=== PATIENT | female | born 1995 | race Two or more races ===

== ENCOUNTER 2018-08-09 13:22 | Emergency (ER) | payer SELFPAY ==
[~2018-08-09] VITALS: Ht 152.4 cm; Wt 109.1 kg
[2018-08-09] MEDS ORDERED: IBUPROFEN 800 MG TABLET PO ONE (15:15)
[2018-08-09] MEDS ORDERED: ACETAMINOPHEN 325 MG TABLET PO ONE (15:15)
[2018-08-09 17:21] LABS: RAPID GROUP A STREP NEGATIVE (NEGATIVE)
[2018-08-09 17:34] LABS: INFLUENZA TYPE A NEGATIVE FOR TYPE A (NEGATIVE); INFLUENZA TYPE B NEGATIVE FOR TYPE B (NEGATIVE)
[2018-08-09 17:55] VITALS: BP 118/60
== END 2018-08-09 18:30 | disposition home or self-care (01) ==
LOC: EMS 13:22
DX: J02.9 Acute pharyngitis, unspecified (principal); M79.10 Myalgia, unspecified site
CPT/HCPCS: 87430; 87804

== ENCOUNTER 2022-01-01 12:37 | Day surgery (SDC) | payer OTHER ==
[~2022-01-01] VITALS: Ht 152.4 cm; Wt 136.1 kg
[~2022-01-01 12:37] MED LIST: ALBU8HFA IH; BENZ-70 PO; OMEP20 PO; ONDA-104 PO; SODIUM CHLORIDE 0.9% 1,000 ML IV ONE; SODIUM CHLORIDE 0.9% 1,000 ML ONE
[2022-01-01] MEDS ORDERED: LIDOCAINE/PF 2% 5 ML VIAL IM ONE (12:38)
[2022-01-01] MEDS ORDERED: PROPOFOL 1% 20 ML VIAL IVP ONE (12:38)
[2022-01-01 13:03] LABS: COVID AG,FIA SOURCE NASAL SWAB
[2022-01-02] MEDS ORDERED: CEPH-558 PO (16:09)
== END 2022-01-01 15:10 | disposition home or self-care (01) ==
LOC: SURGERY 12:37
PROVIDERS: ATTEND Internal Medicine Gastroenterology
DX: K21.00 Gastro-esophageal reflux disease with esophagitis, without bleeding (principal); K29.50 Unspecified chronic gastritis without bleeding; J45.909 Unspecified asthma, uncomplicated; Z90.49 Acquired absence of other specified parts of digestive tract; Z98.890 Other specified postprocedural states; E66.01 Morbid (severe) obesity due to excess calories; Z79.899 Other long term (current) drug therapy
CPT/HCPCS: 43239; 87426; C9803; C1769; J2704; J3490; J7030

== ENCOUNTER 2022-01-02 11:33 | Emergency (ER) | payer OTHER ==
[~2022-01-02] VITALS: Ht 152.4 cm; Wt 136.4 kg
[~2022-01-02 11:33] MED LIST changes: -SODIUM CHLORIDE 0.9% 1,000 ML IV ONE; -SODIUM CHLORIDE 0.9% 1,000 ML ONE
[2022-01-02 12:42] LABS: EOSINOPHILS % (AUTO) 1.6 % (1.0-6.0); HEMATOCRIT 43.6 % (36-46); HEMOGLOBIN 14.6 g/dL (12.0-16.0); LYMPHOCYTES # (AUTO) 2.2 K/uL (1.0-4.8); LYMPHOCYTES % (AUTO) 31.9 % (22.0-44.0); MEAN CORPUSCULAR HEMOGLOBIN 30.8 pg (26.0-34.0); MEAN CORPUSCULAR HGB CONC 33.4 G/dL (31.0-37.0); MEAN CORPUSCULAR VOLUME 92 fL (80-100); MONOCYTES # (AUTO) 0.5 K/uL (0.1-1.0); MONOCYTES % (AUTO) 7.5 % (2.0-9.0); PLATELET COUNT (AUTO) 297 K/uL (150-450); RED BLOOD CELL COUNT(AUTO) 4.73 MIL/uL (4.00-5.20); RED CELL DISTRIBUTION WIDTH 14.4 % (11.5-14.5)
[2022-01-02 13:04] LABS: ANION GAP 7 mmol/L (8-16); CALCIUM, TOTAL 9.4 mg/dL (8.8-10.5); CARBON DIOXIDE 30 mmol/L (22-29); CHLORIDE 106 mmol/L (98-107); CREATININE 0.78 mg/dL (0.60-1.30); GLUCOSE,RANDOM 98 mg/dL (70-110); POTASSIUM 4.1 mmol/L (3.5-5.1); SODIUM SERUM 143 mmol/L (136-145); UREA NITROGEN, BLOOD 10 mg/dL (7-18)
[2022-01-02 13:09] LABS: GLOMERULAR FILTR. RATE CALC > 60 mL/min (>60)
[2022-01-02 13:10] LABS: ALANINE AMINOTRANSFERASE 142 U/L (12-78); ALBUMIN 3.7 g/dL (3.4-5.0); ALKALINE PHOSPHATASE 63 U/L (46-116); ASPARTATE AMINOTRANSFERASE 68 U/L (15-37); BILIRUBIN,TOTAL 0.4 mg/dL (0.1-1.0); TOTAL PROTEIN, SERUM 7.2 g/dL (6.4-8.2)
[2022-01-02 13:42] LABS: HCG,QUANTITATIVE < 1 mIU/mL (0-6)
[2022-01-02 14:49] VITALS: BP 136/79
[2022-01-02 15:48] LABS: APPEARANCE,URINE CLEAR (CLEAR); BILIRUBIN,URINE NEGATIVE (NEGATIVE); GLUCOSE, URINE (UA) NEGATIVE (NEGATIVE); KETONES,URINE NEGATIVE (NEGATIVE); LEUKOCYTE ESTERASE ,URINE SMALL (NEGATIVE); NITRATE,URINE NEGATIVE (NEGATIVE); OCCULT BLOOD,URINE LARGE (NEGATIVE); PH,URINE 5.5 (5.0-8.0); PROTEIN,URINE TRACE mg/dL (NEGATIVE); SPECIFIC GRAVITIY, URINE 1.028 (1.003-1.030); UROBILINOGEN,URINE <=1.0 mg/dL (<=1.0)
[2022-01-02 15:58] LABS: BACTERIA,URINE Moderate /HPF (None Seen)
[2022-01-02 15:59] LABS: SQUAMOUS EPITHELIAL CELL,UR Moderate /LPF (None Seen)
[2022-01-02 16:00] LABS: AMORPHOUS SEDIMENT,UR Few /LPF (None Seen)
[2022-01-02] MEDS ORDERED: CEPH-558 PO (16:09)
== END 2022-01-02 16:22 | disposition home or self-care (01) ==
LOC: EMS 11:35
DX: N39.0 Urinary tract infection, site not specified (principal)
CPT/HCPCS: 80053; 81001; 84702; 84703; 85025; 87086; 99283